=== PATIENT | male | born 1960 | race Caucasian/White ===

== ENCOUNTER 2016-11-30 13:42 | Emergency (ER) | payer OTHER ==
[2016-11-30] MEDS ORDERED: LORAZEPAM 2 MG/ML 1ML SDV ONE ×2 (14:05→16:20)
[2016-11-30] MEDS ORDERED: ASPIRIN CHEWTAB 81 MG TABLET ONE (14:05)
[2016-11-30 14:09] LABS: ABSOLUTE NEUTROPHIL COUNT 6.6 K/mm3 (1.8-7.7); BASO % 0.4 % (0.2-1.0); EOS # 0.2 (0.0-0.5); EOS % 2.5 % (0.9-2.9); HEMATOCRIT 43.9 % (32.0-52.0); IMM NEUT% 0.4 % (0-1); LYMPH # 2.2 (1.0-4.8); LYMPH % 22.8 % (15-45); MEAN CORPUSCULAR HEMOGLOBIN 30.1 pg (27.0-31.0); MEAN CORPUSCULAR HGB CONC 34.2 g/dl (33.0-37.0); MEAN PLATELET VOLUME 9.3 fl (7.4-10.4); MONO # 0.7 (0.0-0.8); MONO % 6.9 % (4-12); PLATELET COUNT 295 K/mm3 (130-400); RED CELL DISTRIBUTION WIDTH 13.2 % (11.5-14.5)
[2016-11-30] MEDS ORDERED: LACTATED RINGERS 1,000 ML ONE (14:15)
[2016-11-30 14:26] LABS: ALB/GLOB RATIO 1.9 (>1.0)
--- NOTE | 2016-11-30 14:46 | RAD ---
CHEST - 2 VIEWS COMPARISON: Chest 2 views, 01/27/2009 HISTORY: Chest pain for 3 days. FINDINGS: Views: Frontal and lateral chest Lungs: Normal Heart and vessels: Normal Trachea and bronchi: Normal Mediastinum and shelton: Normal Costophrenic sulci: Normal Chest wall and bones: No acute finding. Mild degenerative changes in the thoracic spine. Fusion hardware in the lower cervical spine. Upper abdomen: Normal. IMPRESSION: Negative 2 view chest.
== END 2016-11-30 17:29 | disposition home or self-care (01) ==
LOC: ED 13:42
DX: R07.9 Chest pain, unspecified (principal); R45.86 Emotional lability; I49.9 Cardiac arrhythmia, unspecified; I10 Essential (primary) hypertension
CPT/HCPCS: 85379; 85025; 80053; 84484 ×2; 71020; 96376; 99284 ×2; 96374; 96361 ×2; 93005; A9270; J2060 ×2; J7120